=== PATIENT | male | born 1945 | race Caucasian/White ===

== ENCOUNTER 2019-08-14 03:29 | Emergency (ER) | payer OTHER ==
[~2019-08-14] VITALS: Ht 188 cm; Wt 110.0 kg
[~2019-08-14 03:29] MED LIST: ALOG12.5 PO; AMIO200T61 PO; AMLO-94 PO; APIX5TAB3 PO; ATOR80TA PO; CHLO50TA PO; FURO-150 PO; LANTUS SQ; LISI-600 PO; METO-384 PO; PANT-47 PO; WOOL454C
--- NOTE | 2019-08-14 03:55 | NUR ---
0330-ARRIVED CPR IN PROGRESS 0332-PULSE CHECK NO PULSE 0332-1 AMP EPI 0334-PULSE CHECK NO PULSE 0336-AMP EPI,AMP BI-CARB, PUPILS FIXED/DILATED RESUMED CPR 0337-PULSE CHECK ASYSTOLE 0338-TUBED SUCCESSFUL/RESUMED CPR 0339-AMP EPI,PULSE CHECK ASYSTOLE 0340-CPR RESUMED 034-PULSE CHECK,ULTRASOUND NO CARDIAC MOVEMENT PER DR. STOKES TOD-0342 DR. STOKES
--- NOTE | 2019-08-14 04:10 | NUR ---
CALLED [facility] # [phone] VOICEMAIL SAID TO REPORT TO CALL [facility],CALLED [facility] [phone] DISPATCH, TALKED WITH CLARENCE, SHE VERBALIZED SHE WILL CONTACT [facility] AND THAT I WILL BE RECIEVING A PHONE CALL
--- NOTE | 2019-08-14 04:15 | NUR ---
[facility] RELEASED BODY AT [phone]
--- NOTE | 2019-08-14 04:16 | NUR ---
CALLED NEXT OF [facility] LEFT BASIC MESSAGE TO CALL ED AND TO ASK FOR VALERIA STILES
--- NOTE | 2019-08-14 04:28 | NUR ---
SPOKE WITH CAMRYN AT [facility] AT [phone], PATIENT IS NOT A CANDIDATE CASE #[id number]
--- NOTE | 2019-08-14 04:45 | NUR ---
SPOKE WITH PATIENTS NEXT OF KIN SON "CAMPOS." PATIENTS NEXT OF [facility] REQUESTED PATIENT TO GO TO [facility] [place]
--- NOTE | 2019-08-14 04:52 | NUR ---
CALLED [facility] THEY WILL BE HAVING [facility] COME OUT SOON AVAILABLE
--- NOTE | 2019-08-14 06:30 | NUR ---
SBAR TO MAL RN AND SABINO RN NO QUESTIONS OR CONCERNS AFTER ASSUMING CARE
--- NOTE | 2019-08-14 07:45 | NUR ---
called [facility] & Milena spoke with Tripp to check on when the patient will be picked up and Tripp is calling his bus driver and was surprised that the patient was still here.
[2019-08-14] MEDS ORDERED: epiNEPHrine 0.1mg/ml 10ml syringe ONE (08:00)
[2019-08-14] MEDS ORDERED: sodium bicarbonate (8.4%) 1 mEq/ml syringe ONE (08:00)
== END 2019-08-14 08:16 | disposition expired ==
LOC: ER 03:30
DX: I46.9 Cardiac arrest, cause unspecified (principal); E78.00 Pure hypercholesterolemia, unspecified; I50.9 Heart failure, unspecified; I11.0 Hypertensive heart disease with heart failure; K21.9 Gastro-esophageal reflux disease without esophagitis; E11.9 Type 2 diabetes mellitus without complications; Z79.01 Long term (current) use of anticoagulants; Z79.4 Long term (current) use of insulin; Z79.899 Other long term (current) drug therapy
CPT/HCPCS: 31500; 92950; 99285; J0171